=== PATIENT | male | born 1985 ===

== ENCOUNTER 2019-05-07 10:20 | Day surgery (SDC) | payer OTHER ==
[~2019-05-07] VITALS: Ht 170.2 cm; Wt 80.6 kg
[2019-05-07 10:57] VITALS: BP 127/80; PULSE 65; TEMP 97.8
[2019-05-07 12:10] VITALS: BP 107/66; PULSE 60; TEMP 97.8
--- NOTE | 2019-05-07 12:10 | NUR ---
Patient brought back to [facility] [address] via cart. Ambulated to chair. Pt is awake but drowsy. Placed on monitors, vital signs stable. Friend at bedside. Report recieved from Meena PRUITT. Denies nausea or pain. Warm blanket provided. Does not want anything to eat or drink. Call pruitt within reach, will continue to monitor.
[2019-05-07 12:25] VITALS: BP 100/68; PULSE 59
--- NOTE | 2019-05-07 12:25 | NUR ---
Patient requesting orange juice at this time. States he has somewhere to be at 1300. Friend to drive him. Vital signs stable. Will continue to monitor.
[2019-05-07 12:40] VITALS: BP 106/64; PULSE 68
--- NOTE | 2019-05-07 12:40 | NUR ---
Patient states he needs to go. Vital signs stable. Requested another orange juice. IV removed. Pt to get dressed at this time.
--- NOTE | 2019-05-07 12:50 | NUR ---
Patients discharge instructions reviewed. All questions answered. Patient brought down to lobby via wheel chair. Friend to drive pt home.
== END 2019-05-07 12:50 | disposition home or self-care (01) ==
LOC: SDCO 10:20
DX: K29.50 Unspecified chronic gastritis without bleeding (principal); K21.9 Gastro-esophageal reflux disease without esophagitis; Z98.84 Bariatric surgery status; R13.12 Dysphagia, oropharyngeal phase
CPT/HCPCS: J2250; J3010; J7030